=== PATIENT | female | born 1975 | race Caucasian/White ===

== ENCOUNTER 2018-09-16 02:33 | Emergency (ER) | payer MEDICAID, OTHER ==
[~2018-09-16] VITALS: Ht 157.5 cm; Wt 59.0 kg
[~2018-09-16 02:33] MED LIST: META800T87 PO
[2018-09-16] MEDS ORDERED: TETanus/Pertussis (Acell)/Diphther VAC/PF (Tdap-Adult) 0.5ml syringe IM ONE (03:25)
[2018-09-16] MEDS ORDERED: LIDOcaine 1% 30ml preserv. free vial IJ ONE (03:25)
--- NOTE | 2018-09-16 03:41 | NUR ---
WHEN DR MONCADA CAME TO SEEN PT AND ASKED HER TO MOVE HER FINGER PT RESPONDED " I HAVE TO TALK TO IT FIRST " PT ASKED FOR HER FRIEND TO COME TO BEDSIDE UPON ARRIVAL TO THE ROOM PT FRIEND VERBALIZED THAT HE HAD WIRE CUTTERS AND WAS ABLE TO CUT THE FENCE TO FREE HER FINGER FROM BEING STUCK IN THE METAL FENCE THEY WERE BOTH CLIMBING PRIOR TO HER INJURY.
--- NOTE | 2018-09-16 03:50 | NUR ---
DR MONCADA TO ROOM TO KNUB RIGHT THUMB FOR SUTRE PLACEMENT
[2018-09-16] MEDS ORDERED: HYDR-3965 PO (05:14)
[2018-09-16] MEDS ORDERED: AMOX-422 PO (05:14)
[2018-09-16] MEDS ORDERED: amox tr/potassium clavulanate 875/125mg TAB PO ONE (05:15)
[2018-09-16 05:58] VITALS: BP 143/93
== END 2018-09-16 05:40 | disposition home or self-care (01) ==
LOC: ER 02:34
DX: S62.511B Displaced fracture of proximal phalanx of right thumb, initial encounter for open fracture (principal); F12.90 Cannabis use, unspecified, uncomplicated; Z86.69 Personal history of other diseases of the nervous system and sense organs; Z88.5 Allergy status to narcotic agent; Z79.2 Long term (current) use of antibiotics; Z79.899 Other long term (current) drug therapy; W23.1XXA Caught, crushed, jammed, or pinched between stationary objects, initial encounter; Y93.39 Activity, other involving climbing, rappelling and jumping off; Y92.89 Other specified places as the place of occurrence of the external cause; Y99.8 Other external cause status
CPT/HCPCS: 29130; 73140; 90471; 90715; 99283; J2001